=== PATIENT | female | born 1935 ===

== ENCOUNTER 2023-01-19 08:54 | Outpatient (CLI) | payer OTHER | END 2023-01-19 09:07 | disposition home or self-care (01) | LOC: TOM 08:54 | PROVIDERS: ATTEND Internal Medicine Gastroenterology | DX: K92.1 Melena (principal); K56.50 Intestinal adhesions [bands], unspecified as to partial versus complete obstruction ==

== ENCOUNTER 2023-01-28 09:29 | Outpatient (CLI) | payer OTHER | END 2023-01-28 09:35 | disposition home or self-care (01) | LOC: RAD 09:29 | PROVIDERS: ATTEND Internal Medicine Pulmonary Disease | DX: G58.8 Other specified mononeuropathies (principal) ==